=== PATIENT | male | born 1990 | race Caucasian/White ===

== ENCOUNTER 2018-08-08 10:15 | Observation (INO) ==
[2018-08-08] MEDS ORDERED: Ketorolac Inj 30 MG/ML (IVP) Vial IV.PUSH ONE (10:48)
[2018-08-08] MEDS ORDERED: Sod Chloride 0.9% Inj 1,000 ML IV.SIG ONE ×3 (10:48→13:21)
--- NOTE | 2018-08-08 11:20 | ED ---
HPI General Chief complaint: Nausea/Vomiting/Diarrhea Stated complaint: Cold / flu symptoms Time Seen by Provider: 08/08/18 10:34 Source: patient and RN notes reviewed Mode of arrival: ambulatory History of Present Illness HPI narrative: 28yM presenting with fever, chills, sore throat, and nausea. The patient states that he was seen at [facility] approximately 1 week ago for similar symptoms, told he likely had mono based on his CBC, and was instructed on supportive care. He has been taking Tylenol and Motrin with temporary relief of symptoms but says that he now has nausea and has had several episodes of vomiting as well. He says that yesterday when he woke up he had swelling and pain to the right side of his neck. Denies rash, cough, abdominal pain, diarrhea, or dysuria. No recent travel or known sick contacts. History of pharyngeal flap in the past due to "an extra piece of skin on my throat". Related Data Home Medications Medication Instructions Recorded Confirmed No Known Home Medications 08/08/18 08/08/18 Allergies Allergy/AdvReac Type Severity Reaction Status Date / Time Penicillins Allergy Rash Verified 08/08/18 11:13 Review of Systems ROS: all other systems reviewed are negative Constitutional Reports chills and Reports fever(s) Eyes Denies blurry vision ENT Reports sore throat Cardiovascular Denies chest pain Respiratory Denies cough Gastrointestinal Denies abdominal pain and Reports nausea Genitourinary Denies dysuria Musculoskeletal Denies back pain Neurologic Denies confusion Psychiatric Denies confusion PMFSH History History Provided By: Patient Medical History Medical History Patient denies medical problems (Acute) Social History Social History Substance History: No History of Abuse Second Hand Smoke Exposure: No Smoking Status: Never smoker How Often Do You Have a Drink Containing Alcohol: Never Recent Travel in [facility] within the Last 8 Weeks: No Recent Out of Country Travel within the Last 8 Weeks: No Immunization History Tetanus Immunization: Unsure Exam Const General: healthy appearing and no acute distress HENMT Face and sinus: normal facial exam Other: Tongue and uvula midline, no obvious cervical adenopathy, no trismus or drooling, normal phonation Eyes General: appearance normal, both eyes and all related structures Pupils: PERRL Chest Chest: normal inspection of the chest Resp Effort & Inspection: normal respiratory effort Auscultation: no rhonchi and no wheezes Cardio Rate: tachycardic Rhythm: regular rhythm GI Inspection: non-distended Palpation: soft and nontender Skin General: no rashes or lesions noted Neuro General: alert, awake, oriented x3 and no focal motor deficits Psych Affect: normal affect Course Initial Documented Vital Signs Temperature 100 F H 08/08/18 10:19 Pulse Rate 124 H 08/08/18 10:19 Respiratory Rate 22 08/08/18 10:19 Blood Pressure 179/84 H 08/08/18 10:19 Pulse Oximetry 94 L 08/08/18 10:19 Last Documented Vital Signs Temperature 100 F H 08/08/18 10:19 Pulse Rate 91 H 08/08/18 13:43 Respiratory Rate 18 08/08/18 13:43 Blood Pressure 132/74 08/08/18 13:43 Pulse Oximetry 97 08/08/18 13:43 Medical Decision Making [facility] Narrative Medical decision making narrative: Assessment: 28yM presenting with fever, chills, sore throat, nausea Plan: IV fluids, antiemetics Labs CT soft tissue neck Addendum: Patient's workup shows leukocytosis with 9% bands and elevated LFTs. His CXR, CT neck, and RUQ US are all negative for acute pathology. His flu swab is negative. His HR is improved to 90s after 3L NS bolus, temp still around 100F. Given his persistent fever and bandemia, I recommended keeping the patient for observation/ IV hydration/ antibiotics; patient agrees with plan. Case discussed with Dr. Bess of [facility]. Medical Screen Exam Complete: Yes Emergency Medical Condition: Yes Differential Diagnosis Differential Diagnosis: Differential diagnosis includes, but is not limited to: mononucleosis, viral syndrome, dehydration, retropharyngeal/ peritonsillar abscess, cervical mass, sepsis/SIRS Lab Data Lab results reviewed: Yes I reviewed the patient's lab results. Result diagrams: 08/08/18 11:08 08/08/18 11:08 Lab Results 08/08/18 08/08/18 08/08/18 Range/Units 11:08 11:08 11:08 WBC 13.5 H (4.0-11.0) th/mm3 RBC 5.03 (4.50-5.90) mil/mm3 Hgb 14.7 (13.0-17.0) gm/dL Hct 43.9 (39.0-51.0) % MCV 87.3 (80.0-100.0) fL MCH 29.2 (27.0-34.0) pg MCHC 33.5 (32.0-36.0) % RDW 13.7 (11.6-17.2) % Plt Count 170 (150-450) th/mm3 MPV 8.2 (7.0-11.0) fL Prelim Diff (Auto) Slide review pending Neut % (Auto) 39.2 (16.0-70.0) % Lymph % (Auto) 52.1 H (9.0-44.0) % [place] % (Auto) 7.1 (0.0-8.0) % Eos % (Auto) 1.1 (0.0-4.0) % Baso % (Auto) 0.5 (0.0-2.0) % Neut # (Auto) 5.3 (1.8-7.7) th/mm3 Lymph # (Auto) 7.0 H (1.0-4.8) th/mm3 [place] # (Auto) 1.0 H (0.0-0.9) th/mm3 Eos # (Auto) 0.2 (0.0-0.4) th/mm3 Baso # (Auto) 0.1 (0.0-0.2) th/mm3 WBC Differential Manual diff final Seg Neuts % (Manual) 47 (16-70) % Band Neuts % (Manual) 9 H (0-6) % Lymphocytes % (Manual) 26 (9-44) % Atypical Lymphs % (Man) 10 H (0-0) % Monocytes % (Manual) 8 (0-8) % Abs Neuts (Manual) 7.6 (1.8-7.7) th/mm3 Differential Comment . Platelet Estimate Normal (Normal) Platelet Morphology Normal (Normal) RBC Morphology Normal (Normal) Sodium 136 (136-145) meq/L Potassium 3.9 (3.5-5.1) meq/L Chloride 101 (98-107) meq/L Carbon Dioxide 26.1 (21.0-32.0) meq/L Anion Gap 9 (5-15) meq/L BUN 5 L (7-18) mg/dL Creatinine 0.86 (0.60-1.30) mg/dL Estimated GFR Greater than 89 (>89) mL/min Random Glucose 98 (74-106) mg/dL Calcium 8.3 L (8.5-10.1) mg/dL Magnesium 2.0 (1.5-2.5) mg/dL Total Bilirubin 0.9 (0.2-1.0) mg/dL AST 111 H (15-37) U/L ALT 218 H (12-78) U/L Alkaline Phosphatase 137 H (45-117) U/L Total Protein 7.7 (6.4-8.2) g/dL Albumin 3.2 L (3.4-5.0) g/dL Lipase 72 L (73-393) U/L Urine Color (Yellw/Straw) Urine Clarity (Clear) Urine pH (5.0-8.5) Ur Specific [place] (1.002-1.035) Urine Protein (Neg-Trace) mg/dL Urine Glucose (UA) (Negative) mg/dL Urine Ketones (Negative) mg/dL Urine Occult Blood (Negative) Urine Nitrate (Negative) Urine Bilirubin (Negative) Urine Ictotest (Negative) Urine Urobilinogen (Less than 2) mg/dL Ur Leukocyte Esterase (Negative) Urine RBC (0-3) /hpf Urine WBC (0-5) /hpf Urine Mucus (Occasional) /lpf Micro UA Comment Ur Microscopic Review Urine Culture Comments Monoscreen Neg (Neg) 08/08/18 Range/Units 12:08 WBC (4.0-11.0) th/mm3 RBC (4.50-5.90) mil/mm3 Hgb (13.0-17.0) gm/dL Hct (39.0-51.0) % MCV (80.0-100.0) fL MCH (27.0-34.0) pg MCHC (32.0-36.0) % RDW (11.6-17.2) % Plt Count (150-450) th/mm3 MPV (7.0-11.0) fL Prelim Diff (Auto) Neut % (Auto) (16.0-70.0) % Lymph % (Auto) (9.0-44.0) % [place] % (Auto) (0.0-8.0) % Eos % (Auto) (0.0-4.0) % Baso % (Auto) (0.0-2.0) % Neut # (Auto) (1.8-7.7) th/mm3 Lymph # (Auto) (1.0-4.8) th/mm3 [place] # (Auto) (0.0-0.9) th/mm3 Eos # (Auto) (0.0-0.4) th/mm3 Baso # (Auto) (0.0-0.2) th/mm3 WBC Differential Seg Neuts % (Manual) (16-70) % Band Neuts % (Manual) (0-6) % Lymphocytes % (Manual) (9-44) % Atypical Lymphs % (Man) (0-0) % Monocytes % (Manual) (0-8) % Abs Neuts (Manual) (1.8-7.7) th/mm3 Differential Comment Platelet Estimate (Normal) Platelet Morphology (Normal) RBC Morphology (Normal) Sodium (136-145) meq/L Potassium (3.5-5.1) meq/L Chloride (98-107) meq/L Carbon Dioxide (21.0-32.0) meq/L Anion Gap (5-15) meq/L BUN (7-18) mg/dL Creatinine (0.60-1.30) mg/dL Estimated GFR (>89) mL/min Random Glucose (74-106) mg/dL Calcium (8.5-10.1) mg/dL Magnesium (1.5-2.5) mg/dL Total Bilirubin (0.2-1.0) mg/dL AST (15-37) U/L ALT (12-78) U/L Alkaline Phosphatase (45-117) U/L Total Protein (6.4-8.2) g/dL Albumin (3.4-5.0) g/dL Lipase (73-393) U/L Urine Color Zeynep (Yellw/Straw) Urine Clarity Hazy H (Clear) Urine pH 5.0 (5.0-8.5) Ur Specific [place] 1.038 H (1.002-1.035) Urine Protein 100 H (Neg-Trace) mg/dL Urine Glucose (UA) Negative (Negative) mg/dL Urine Ketones Negative (Negative) mg/dL Urine Occult Blood Negative (Negative) Urine Nitrate Negative (Negative) Urine Bilirubin Negative (Negative) Urine Ictotest Negative (Negative) Urine Urobilinogen 4 or greater (Less than 2) mg/dL Ur Leukocyte Esterase Negative (Negative) Urine RBC 1 (0-3) /hpf Urine WBC 1 (0-5) /hpf Urine Mucus Many H (Occasional) /lpf Micro UA Comment Culture not ind Ur Microscopic Review Not Reportable Urine Culture Comments Culture not ind Monoscreen (Neg) Imaging Data Radiologist's impression: Soft Tissue Neck CT 08/08/18 10:48 CONCLUSION: 1. Prominent bilateral internal jugular lymph nodes 2. Mild mucosal thickening left maxillary sinus. 3. No evidence of suspicious mass or acute inflammatory disease Gallbladder Ultrasound 08/08/18 12:41 CONCLUSION: 1. Hepatomegaly with abnormal echotexture characteristic of steatosis and/or diffuse hepatocellular disease. 2. No evidence of cholelithiasis or acute process. Discharge Plan Discharge Disposition Patient Disposition: 28 Still Patient Discharge Condition Condition: Stable Discharge Details Diagnosis: Bandemia, Febrile illness Physicians Team ED Provider: Leigha Corado Primary Care Provider: Primary Care Physici,No Rxs /Orders / Referrals /Forms Prescriptions: No Action No Known Home Medications RF: 0 Status ED Status: Pending Admission
[2018-08-08 11:27] LABS: Baso # (Auto) 0.1 th/mm3 (0.0-0.2); Baso % (Auto) 0.5 % (0.0-2.0); Eos # (Auto) 0.2 th/mm3 (0.0-0.4); Eos % (Auto) 1.1 % (0.0-4.0); Hematocrit 43.9 % (39.0-51.0); Hemoglobin 14.7 gm/dL (13.0-17.0); Lymph % (Auto) 52.1 % (9.0-44.0); Mean Corpuscular HGB Conc 33.5 % (32.0-36.0); Mean Corpuscular Hemoglobin 29.2 pg (27.0-34.0); Mean Corpuscular Volume 87.3 fL (80.0-100.0); Mean Platelet Volume 8.2 fL (7.0-11.0); Mono % (Auto) 7.1 % (0.0-8.0); Neut # (Auto) 5.3 th/mm3 (1.8-7.7); Neut % (Auto) 39.2 % (16.0-70.0); Platelet Count 170 th/mm3 (150-450); Red Blood Count 5.03 mil/mm3 (4.50-5.90); Red Cell Distribution Width 13.7 % (11.6-17.2); White Blood Count 13.5 th/mm3 (4.0-11.0)
[2018-08-08 11:36] LABS: Mono Screen Neg (Neg)
[2018-08-08 11:58] LABS: Alkaline Phosphatase 137 U/L (45-117); Total Protein 7.7 g/dL (6.4-8.2)
[2018-08-08 12:12] LABS: Alanine Aminotransferase 218 U/L (12-78); Albumin 3.2 g/dL (3.4-5.0); Anion Gap 9 meq/L (5-15); Aspartate Aminotransferase 111 U/L (15-37); Blood Urea Nitrogen 5 mg/dL (7-18); Calcium 8.3 mg/dL (8.5-10.1); Carbon Dioxide 26.1 meq/L (21.0-32.0); Chloride 101 meq/L (98-107); Glomerular Filtration Rate Greater Than 89 mL/min (>89); Glucose,Random 98 mg/dL (74-106); Lipase 72 U/L (73-393); Potassium 3.9 meq/L (3.5-5.1); Sodium 136 meq/L (136-145)
[2018-08-08 12:21] LABS: Atypical Lymphs 10 % (0-0); Lymphocytes 26 % (9-44); Monocytes 8 % (0-8); Platelet Estimate Normal (Normal); Platelet Morphology Normal (Normal); RBC Morphology Normal (Normal)
[2018-08-08 12:51] LABS: Clarity,Urine Hazy (Clear); Color,Urine Amber (Yellw/Straw); Glucose,Urine (UA) Negative (Negative); Leukocyte Esterase,Urine Negative (Negative); Mucus,Urine Many /lpf (Occasional); Nitrite,Urine Negative (Negative); Specific Gravity,Urine 1.038 (1.002-1.035); Urobilinogen,Urine 4 or Greater mg/dL (Less than 2)
[2018-08-08 12:57] LABS: Bilirubin,Urine Negative (Negative); Ictotest,Urine Negative (Negative)
--- NOTE | 2018-08-08 13:04 | CT ---
EXAM DATE: 08/08/2018 12:44 PM EST AGE/SEX: 28 years / Male INDICATIONS: Right side neck pain radiating up to right ear, fever, vomiting, cough CLINICAL DATA: This is the patient's initial encounter. Patient reports that signs and symptoms have been present for 2 weeks and indicates a pain score of 3/10. MEDICAL/SURGICAL HISTORY: None. None. RADIATION DOSE: 19.24 CTDI (mGy) COMPARISON: No prior exams available for comparison. TECHNIQUE: Helical acquisition was performed using a multirow detector CT scanner during the adminis tration of 71ML ml Omnipaque 350 (iohexol) nonionic water-soluble contrast as a single exam dose. U sing automated exposure control and adjustment of the mA and/or kV according to patient size, radiati on dose was kept as low as reasonably achievable to obtain optimal diagnostic quality images. DICOM format image data is available electronically for review and comparison. FINDINGS: Nasopharynx: The nasopharyngeal airway has a normal configuration. No mucosal thickening or mass is seen. Oropharynx: The intrinsic muscles of the tongue are symmetric. The tonsillar pillars are intact. T he prevertebral soft tissues are not thickened. Larynx: The supraglottic, glottic, and infraglottic structures are intact. Parapharyngeal: The parapharyngeal space is intact. Salivary Glands: The parotid and submandibular glands are intact. Lymph Nodes: Mildly enlarged bilateral level 2 and level 3 internal jugular lymph nodes are noted. L ymph nodes range in size up to 2 cm in greatest diameter. There are no necrotic changes. Thyroid: Homogeneous enhancement without evidence of nodule. Bones: Unremarkable. Mild mucosal thickening is seen along the floor of the left maxillary sinus. CONCLUSION: 1. Prominent bilateral internal jugular lymph nodes 2. Mild mucosal thickening left maxillary sinus. 3. No evidence of suspicious mass or acute inflammatory disease Electronically signed by: Carroll Melgar MD 08/08/2018 1:03 PM EST
--- NOTE | 2018-08-08 13:15 | US ---
EXAM DATE: 08/08/2018 1:11 PM EST AGE/SEX: 28 years / Male INDICATIONS: Nausea. Vomiting. CLINICAL DATA: This is the patient's initial encounter. Patient reports that signs and symptoms have been present for 2 weeks and indicates a pain score of 3/10. MEDICAL/SURGICAL HISTORY: . Nausea. Vomiting. None. COMPARISON: No prior exams available for comparison. MEASUREMENTS: Liver:__ 21.3 cm. Common Bile Duct:__ 5mm. FINDINGS: Liver: Increased echotexture without focal lesion or ductal dilation. Portal Vein: Hepatopedal flow seen in portal vein. Common Duct: No intraluminal mass or stone visualized. Gallbladder: Demonstrates no wall thickening or pericholecystic fluid. No stones visualized. Pancreas: Not well visualized. Right Kidney: Normal echotexture and cortical thickness. No mass or hydronephrosis. Other: None. CONCLUSION: 1. Hepatomegaly with abnormal echotexture characteristic of steatosis and/or diffuse hepatocellular disease. 2. No evidence of cholelithiasis or acute process. Electronically signed by: Carroll Melgar MD 08/08/2018 1:13 PM EST
[2018-08-08] MEDS ORDERED: Vancomycin Inj 1,000 MG in Sodium Chlor 0.9% Inj 250 ML IV.SIG STA (13:43)
[2018-08-08] MEDS ORDERED: Aztreonam Inj 2 GM in Sodium Chloride 0.9% Inj 100 ML IV.SIG STA (13:43)
--- NOTE | 2018-08-08 14:24 | P.HPIM ---
History of Present Illness Primary Care Physician: No Primary Care Physician Chief Complaint: fever History of Present Illness: patient is a 28 y/o male with no significant past medical history who presented to ER with fever. he says that he's had on and off fever along with sore throat , nausea, vomiting and diarrhea for the past two weeks. he was seen at [facility] about a week ago and was told that he probably had mononucleosis although he says that ' he wasn't tested for it'. he was given some IV fluid and discharged home. he says that his fever didn't go away despite taking tylenol and motrin and since then he's been getting weaker to the extent that he couldn't walk today.he denies any abdominal pain but had on and off chills and night sweats. he was tachycardic at the time of presentation to ER which improved after IV hydration. Review of Systems All other systems reviewed negative except as stated in HPI PMFSH - History History Provided By: Patient - Medical History Medical History: Medical History (Last Reviewed 08/08/18 @ 14:19 by Magdalena Bess MD) Patient denies medical problems - Surgical History Surgical History: Surgical History (Last Updated 08/08/18 @ 14:20 by Magdalena Bess MD) H/O knee surgery - Family History Family History: Family History (Last Updated 08/08/18 @ 14:20 by Magdalena Bess MD) Father Family history of hypertension - Tobacco History Second Hand Smoke Exposure: No Tobacco Use In Past 30 Days: No Smoking Status: Never smoker - Alcohol History How Often Do You Have a Drink Containing Alcohol: Never - Substance Use History Substance History: No History of Abuse - Travel History Recent Travel in the [place] Within the Last 8 Weeks: No Recent Travel Out of the Country Within the Last 8 Weeks: No - Immunization History Tetanus Immunization: Unsure Medications and Allergies Active Medications: Active Medications Metronidazole/Sodium Chloride (Flagyl 500 Mg Inj) 100 mls @ 100 mls/hr IV.SIG STAT STA Stop: 08/08/18 14:42 Last Admin: 08/08/18 14:01 Dose: 100 mls/hr Vancomycin HCl 1,000 mg/ (Sodium Chloride) 250 mls @ 250 mls/hr IV.SIG STAT STA Stop: 08/08/18 14:42 Sodium Chloride (Ns Flush) 2 ml IV.FLUSH PRN PRN PRN Reason: FLUSH AFTER USING IV ACCESS Allergies Allergy/AdvReac Type Severity Reaction Status Date / Time Penicillins Allergy Rash Verified 08/08/18 11:13 Home Medications Medication Instructions Recorded Confirmed Type No Known Home Medications 08/08/18 08/08/18 History Exam Vital signs: Vital Signs 08/08/18 10:19 08/08/18 10:45 08/08/18 12:02 Temperature 100 F H Pulse Rate 124 H 112 H Respiratory Rate 22 16 18 Blood Pressure 179/84 H Pulse Oximetry 94 L 97 08/08/18 13:43 Temperature Pulse Rate 91 H Respiratory Rate 18 Blood Pressure 132/74 Pulse Oximetry 97 Intake & Output 08/07/18 08/08/18 08/08/18 19:59 06:59 18:59 Intake Total 3000 / 3000 Balance 3000 / 3000 Weight 127.006 kg Intake: IV 3000 / 3000 NS Inj 1,000 ML @ Wide Open IV. 3000 / 3000 SIG BOLUS ONE Rx#:[id number] - Constitutional no acute distress - Routine HEENT Exam Eye: Present: PERRL - Routine Neck Exam Present: supple - Routine Respiratory Exam Present: CTA bilaterally - Routine Cardiovascular Exam Present: RRR - Routine Abdominal Exam Present: soft - Routine Extremities Exam Comments: no pedal edema. - Routine Neurological Exam Present: alert, oriented X3 Results - Labs CBC & Chem 7: 08/08/18 11:08 08/08/18 11:08 Labs: Short CBC 08/08/18 Range/Units 11:08 WBC 13.5 H (4.0-11.0) th/mm3 Hgb 14.7 (13.0-17.0) gm/dL Hct 43.9 (39.0-51.0) % Plt Count 170 (150-450) th/mm3 BMP 08/08/18 11:08 Sodium 136 Potassium 3.9 Chloride 101 Carbon Dioxide 26.1 BUN 5 L Creatinine 0.86 Calcium 8.3 L Liver Function 08/08/18 Range/Units 11:08 Total Bilirubin 0.9 (0.2-1.0) mg/dL AST 111 H (15-37) U/L ALT 218 H (12-78) U/L Alkaline Phosphatase 137 H (45-117) U/L Albumin 3.2 L (3.4-5.0) g/dL Urine 08/08/18 Range/Units 12:08 Urine Color Zeynep (Yellw/Straw) Urine Clarity Hazy H (Clear) Urine pH 5.0 (5.0-8.5) Ur Specific [place] 1.038 H (1.002-1.035) Urine Protein 100 H (Neg-Trace) mg/dL Urine Glucose (UA) Negative (Negative) mg/dL - Imaging Impressions Soft Tissue Neck CT 08/08/18 10:48 CONCLUSION: 1. Prominent bilateral internal jugular lymph nodes 2. Mild mucosal thickening left maxillary sinus. 3. No evidence of suspicious mass or acute inflammatory disease Gallbladder Ultrasound 08/08/18 12:41 CONCLUSION: 1. Hepatomegaly with abnormal echotexture characteristic of steatosis and/or diffuse hepatocellular disease. 2. No evidence of cholelithiasis or acute process. Caprini VTE Risk Assessment Caprini VTE Risk Assessment: No/Low Risk (score <= 1) Caprini Risk Assessment Model: Point Value = 1 Point Value = 2 Point Value = 3 Point Value = 5 Age 41-60 Minor surgery BMI > 25 kg/m2 Swollen legs Varicose veins or History of unexplained or recurrent spontaneous Oral contraceptives or hormone replacement Sepsis (< 1 month) Serious lung disease, including pneumonia (< 1 month) Abnormal pulmonary function Acute myocardial infarction Congestive heart failure (< 1 month) History of inflammatory bowel disease Medical patient at bed rest Age 61-74 Arthroscopic surgery Major open surgery (> 45 min) Laparoscopic surgery (> 45 min) Malignancy Confined to bed (> 72 hours) Immobilizing plaster cast Central venous access Age >= 75 History of VTE Family history of VTE Factor V Leiden Prothrombin [id number] Lupus anticoagulant Anticardiolipin antibodies Elevated serum homocysteine Heparin-induced thrombocytopenia Other congenital or acquired thrombophilia Stroke (< 1 month) Elective arthroplasty Hip, pelvis, or leg fracture Acute spinal cord injury (< 1 month) Prophylaxis Regimen: Total Risk Factor Score Risk Level Prophylaxis Regimen 0-1 Low Early ambulation 2 Moderate Order ONE of the following: *Sequential Compression Device (SCD) *Heparin 5000 units SQ BID 3-4 Higher Order ONE of the following medications: *Heparin 5000 units SQ TID *Enoxaparin/Lovenox 40 mg SQ daily (WT < 150 kg, CrCl > 30 mL/min) *Enoxaparin/Lovenox 30 mg SQ daily (WT < 150 kg, CrCl > 10-29 mL/min) *Enoxaparin/Lovenox 30 mg SQ BID (WT < 150 kg, CrCl > 30 mL/min) AND/OR *Sequential Compression Device (SCD) 5 or more Highest Order ONE of the following medications: *Heparin 5000 units SQ TID (Preferred with Epidurals) *Enoxaparin/Lovenox 40 mg SQ daily (WT < 150 kg, CrCl > 30 mL/min) *Enoxaparin/Lovenox 30 mg SQ daily (WT < 150 kg, CrCl > 10-29 mL/min) *Enoxaparin/Lovenox 30 mg SQ BID (WT < 150 kg, CrCl > 30 mL/min) AND *Sequential Compression Device (SCD) Assessment and Plan - Plan A/P - SIRS; fever/ leukocytosis with bandemia/ tachycardia with elevated LFT's patient was seen at [facility] for fever about a week ago and discharged home from ER. UA and CXR negative/ mono test negative. GB sonogram with hepatomegaly and possible hepatocellular disease and no acute abnormality. CT neck soft tissue with prominent internal jugular lymph nodes and no acute inflammatory process. received IV antibiotics in ER- will hold off on IV antibiotics for now. will follow the cultures. HIV testing/ check the hepatitis panel and consult ID. continue with supportive care with IV fluid and antipyretics as needed. will obtain the medical record from [facility]. Discussed Condition With: ER physician and the patient.
[2018-08-08] MEDS: Sod Chloride 0.9% Inj 1,000 ML IV.CONT SCH (14:36)
--- NOTE | 2018-08-08 14:41 | XR ---
EXAM DATE: 08/08/2018 1:45 PM EST AGE/SEX: 28 years / Male INDICATIONS: Chest pain, fever and shortness of breath. CLINICAL DATA: This is the patient's initial encounter. Patient reports that signs and symptoms have been present for 2 weeks and indicates a pain score of 5/10. MEDICAL/SURGICAL HISTORY: Asthma. None. COMPARISON: No prior exams available for comparison. FINDINGS: A single AP view of the chest demonstrates the lungs to be symmetrically aerated without evidence of mass, infiltrate or effusion. The cardiomediastinal contours are unremarkable. Osseous structures a re intact. CONCLUSION: No evidence of acute cardiopulmonary process. Electronically signed by: Carroll Melgar MD 08/08/2018 2:40 PM EST
[2018-08-08] MEDS: Ibuprofen 400 MG Tablet PO PRN (20:04)
[2018-08-08 21:11] LABS: Hepatitis A IgM Antibody Nonreactive (Nonreactive); Hepatitits B Surface Antigen Nonreactive (Nonreactive)
[2018-08-09] MEDS: Sod Chloride 0.9% Inj 1,000 ML IV.CONT SCH ×3 (01:29→16:22)
[2018-08-09] MEDS: Ibuprofen 400 MG Tablet PO PRN ×2 (03:31→13:29)
[2018-08-09 08:17] LABS: Hematocrit 36.8 % (39.0-51.0); Hemoglobin 12.3 gm/dL (13.0-17.0); Mean Corpuscular HGB Conc 33.4 % (32.0-36.0); Mean Corpuscular Hemoglobin 29.1 pg (27.0-34.0); Mean Corpuscular Volume 87.2 fL (80.0-100.0); Mean Platelet Volume 7.8 fL (7.0-11.0); Platelet Count 145 th/mm3 (150-450); Red Blood Count 4.22 mil/mm3 (4.50-5.90); Red Cell Distribution Width 14.3 % (11.6-17.2); White Blood Count 10.9 th/mm3 (4.0-11.0)
--- NOTE | 2018-08-09 09:01 | P.PN ---
Subjective Interval history: Follow up for fevers. Patient reports overall feeling better today, however still having fevers overnight. He reports associated sweats throughout the night. He states his sore throat has improved and he is tolerating oral intake. He reports a mild diffuse frontal headache that has also improved. He denies any neck pain or rigidity. Denies any abdominal pain, nausea/vomiting, or diarrhea. He denies any sick contacts. He has no other medical complaints at this time. Physical Exam Vital signs: Vital Signs 08/08/18 10:19 08/08/18 10:45 08/08/18 12:02 Temperature 100 F H Pulse Rate 124 H 112 H Respiratory Rate 22 16 18 Blood Pressure 179/84 H Pulse Oximetry 94 L 97 08/08/18 13:43 08/08/18 14:20 08/08/18 16:00 Temperature 98.6 F Pulse Rate 91 H 92 H 91 H Respiratory Rate 18 18 16 Blood Pressure 132/74 132/74 128/63 Pulse Oximetry 97 98 08/08/18 20:00 08/08/18 23:44 08/09/18 03:34 Temperature 100.6 F H 98.2 F 98.1 F Pulse Rate 100 H 89 100 H Respiratory Rate 20 18 20 Blood Pressure 141/75 H 132/72 141/83 H Pulse Oximetry 98 97 97 08/09/18 07:27 Temperature 97.5 F L Pulse Rate 83 Respiratory Rate 18 Blood Pressure 133/63 Pulse Oximetry 98 Intake & Output 08/08/18 08/09/18 08/09/18 18:59 06:59 18:59 Intake Total 3800 / 3800 2750 / 2750 Balance 3800 / 3800 2750 / 2750 Weight 127.006 kg Intake: IV 3200 / 3200 1950 / 1950 NS Inj 1,000 ML @ 125 mls/hr IV 1700 / 1700 .CONT .Q8H DEON Rx#:[id number] Azactam Inj 2 GM In NS Inj 100 100 / 100 ML @ 200 mls/hr IV.SIG STAT STA Rx#:[id number] NS Inj 1,000 ML @ Wide Open IV. 3000 / 3000 SIG BOLUS ONE Rx#:[id number] Vancomycin Inj 1,000 MG In NS 250 / 250 Inj 250 ML @ 250 mls/hr IV.SIG STAT STA Rx#:[id number] Flagyl 500 MG Inj 100 ML @ 100 100 / 100 mls/hr IV.SIG STAT STA Rx#: [id number] Oral 600 / 600 800 / 800 Other: # Voids 3 Narrative: GENERAL: Well-nourished, well-developed pleasant young male patient in NAD. SKIN: Warm and dry. No rash. HEENT: Normocephalic. Atraumatic. Pupils equal and round. Mucous membranes pink and moist. Posterior oropharynx with minimal erythema, no tonsillar edema/ exudate. NECK: Supple. Trachea midline. Nontender. Full active ROM without difficulty/ pain. CARDIOVASCULAR: Regular rate and rhythm. No murmur appreciated. RESPIRATORY: No accessory muscle use. Clear to auscultation. Breath sounds equal bilaterally. GASTROINTESTINAL: Abdomen soft, non-tender, nondistended. Normoactive bowel sounds x4. MUSCULOSKELETAL: No obvious deformities. Extremities without clubbing, cyanosis , or edema. NEUROLOGICAL: Awake and alert. No obvious cranial nerve deficits. Motor grossly within normal limits. Moving all extremities spontaneously. Normal speech. PSYCHIATRIC: Appropriate mood and affect; insight and judgment normal. Results - Labs CBC & Chem 7: 08/09/18 07:57 08/08/18 11:08 Laboratory Results - last 24 hr 08/08/18 08/08/18 08/08/18 11:08 11:08 11:08 WBC 13.5 H RBC 5.03 Hgb 14.7 Hct 43.9 MCV 87.3 MCH 29.2 MCHC 33.5 RDW 13.7 Plt Count 170 MPV 8.2 Prelim Diff (Auto) Slide review pending Neut % (Auto) 39.2 Lymph % (Auto) 52.1 H [place] % (Auto) 7.1 Eos % (Auto) 1.1 Baso % (Auto) 0.5 Neut # (Auto) 5.3 Lymph # (Auto) 7.0 H [place] # (Auto) 1.0 H Eos # (Auto) 0.2 Baso # (Auto) 0.1 WBC Differential Manual diff final Seg Neuts % (Manual) 47 Band Neuts % (Manual) 9 H Lymphocytes % (Manual) 26 Atypical Lymphs % (Man) 10 H Monocytes % (Manual) 8 Abs Neuts (Manual) 7.6 Differential Comment . Platelet Estimate Normal Platelet Morphology Normal RBC Morphology Normal ESR Sodium 136 Potassium 3.9 Chloride 101 Carbon Dioxide 26.1 Anion Gap 9 BUN 5 L Creatinine 0.86 Estimated GFR Greater than 89 Random Glucose 98 Lactic Acid Calcium 8.3 L Magnesium 2.0 Total Bilirubin 0.9 AST 111 H ALT 218 H Alkaline Phosphatase 137 H C-Reactive Protein Total Protein 7.7 Albumin 3.2 L Lipase 72 L Urine Color Urine Clarity Urine pH Ur Specific [place] Urine Protein Urine Glucose (UA) Urine Ketones Urine Occult Blood Urine Nitrate Urine Bilirubin Urine Ictotest Urine Urobilinogen Ur Leukocyte Esterase Urine RBC Urine WBC Urine Mucus Micro UA Comment Ur Microscopic Review Urine Culture Comments Hepatitis A IgM Ab Hep Bs Antigen Hep B Core IgM Ab Hep C IgG Ab Monoscreen Neg HIV 1&2 Ab/P24 Ag 4thGn 08/08/18 08/08/18 08/08/18 11:08 11:08 12:08 WBC RBC Hgb Hct MCV MCH MCHC RDW Plt Count MPV Prelim Diff (Auto) Neut % (Auto) Lymph % (Auto) [place] % (Auto) Eos % (Auto) Baso % (Auto) Neut # (Auto) Lymph # (Auto) [place] # (Auto) Eos # (Auto) Baso # (Auto) WBC Differential Seg Neuts % (Manual) Band Neuts % (Manual) Lymphocytes % (Manual) Atypical Lymphs % (Man) Monocytes % (Manual) Abs Neuts (Manual) Differential Comment Platelet Estimate Platelet Morphology RBC Morphology ESR 10 Sodium Potassium Chloride Carbon Dioxide Anion Gap BUN Creatinine Estimated GFR Random Glucose Lactic Acid Calcium Magnesium Total Bilirubin AST ALT Alkaline Phosphatase C-Reactive Protein 5.55 H Total Protein Albumin Lipase Urine Color Zeynep Urine Clarity Hazy H Urine pH 5.0 Ur Specific [place] 1.038 H Urine Protein 100 H Urine Glucose (UA) Negative Urine Ketones Negative Urine Occult Blood Negative Urine Nitrate Negative Urine Bilirubin Negative Urine Ictotest Negative Urine Urobilinogen 4 or greater Ur Leukocyte Esterase Negative Urine RBC 1 Urine WBC 1 Urine Mucus Many H Micro UA Comment Culture not ind Ur Microscopic Review Not Reportable Urine Culture Comments Culture not ind Hepatitis A IgM Ab Hep Bs Antigen Hep B Core IgM Ab Hep C IgG Ab Monoscreen HIV 1&2 Ab/P24 Ag 4thGn 08/08/18 08/08/18 08/08/18 12:37 18:03 18:03 WBC RBC Hgb Hct MCV MCH MCHC RDW Plt Count MPV Prelim Diff (Auto) Neut % (Auto) Lymph % (Auto) [place] % (Auto) Eos % (Auto) Baso % (Auto) Neut # (Auto) Lymph # (Auto) [place] # (Auto) Eos # (Auto) Baso # (Auto) WBC Differential Seg Neuts % (Manual) Band Neuts % (Manual) Lymphocytes % (Manual) Atypical Lymphs % (Man) Monocytes % (Manual) Abs Neuts (Manual) Differential Comment Platelet Estimate Platelet Morphology RBC Morphology ESR Sodium Potassium Chloride Carbon Dioxide Anion Gap BUN Creatinine Estimated GFR Random Glucose Lactic Acid 1.3 Calcium Magnesium Total Bilirubin AST ALT Alkaline Phosphatase C-Reactive Protein Total Protein Albumin Lipase Urine Color Urine Clarity Urine pH Ur Specific [place] Urine Protein Urine Glucose (UA) Urine Ketones Urine Occult Blood Urine Nitrate Urine Bilirubin Urine Ictotest Urine Urobilinogen Ur Leukocyte Esterase Urine RBC Urine WBC Urine Mucus Micro UA Comment Ur Microscopic Review Urine Culture Comments Hepatitis A IgM Ab Nonreactive Hep Bs Antigen Nonreactive Hep B Core IgM Ab Nonreactive Hep C IgG Ab Nonreactive Monoscreen HIV 1&2 Ab/P24 Ag 4thGn Nonreactive 08/09/18 07:57 WBC 10.9 RBC 4.22 L Hgb 12.3 L D Hct 36.8 L MCV 87.2 MCH 29.1 MCHC 33.4 RDW 14.3 Plt Count 145 L MPV 7.8 Prelim Diff (Auto) Manual diff required Neut % (Auto) Lymph % (Auto) [place] % (Auto) Eos % (Auto) Baso % (Auto) Neut # (Auto) Lymph # (Auto) [place] # (Auto) Eos # (Auto) Baso # (Auto) WBC Differential Seg Neuts % (Manual) Band Neuts % (Manual) Lymphocytes % (Manual) Atypical Lymphs % (Man) Monocytes % (Manual) Abs Neuts (Manual) Differential Comment . Platelet Estimate Platelet Morphology RBC Morphology ESR Sodium Potassium Chloride Carbon Dioxide Anion Gap BUN Creatinine Estimated GFR Random Glucose Lactic Acid Calcium Magnesium Total Bilirubin AST ALT Alkaline Phosphatase C-Reactive Protein Total Protein Albumin Lipase Urine Color Urine Clarity Urine pH Ur Specific [place] Urine Protein Urine Glucose (UA) Urine Ketones Urine Occult Blood Urine Nitrate Urine Bilirubin Urine Ictotest Urine Urobilinogen Ur Leukocyte Esterase Urine RBC Urine WBC Urine Mucus Micro UA Comment Ur Microscopic Review Urine Culture Comments Hepatitis A IgM Ab Hep Bs Antigen Hep B Core IgM Ab Hep C IgG Ab Monoscreen HIV 1&2 Ab/P24 Ag 4thGn Microbiology 08/08/18 12:53 Nasal Wash Influenza Types A,B Antigen - Final Negative for FLU A and B antigen Infection due to influenza A or B cannot be ruled out since the antigen present in the sample may be below the detection limit of the test. - Imaging Impressions Soft Tissue Neck CT 08/08/18 10:48 CONCLUSION: 1. Prominent bilateral internal jugular lymph nodes 2. Mild mucosal thickening left maxillary sinus. 3. No evidence of suspicious mass or acute inflammatory disease Gallbladder Ultrasound 08/08/18 12:41 CONCLUSION: 1. Hepatomegaly with abnormal echotexture characteristic of steatosis and/or diffuse hepatocellular disease. 2. No evidence of cholelithiasis or acute process. Chest X-Ray 08/08/18 13:21 CONCLUSION: No evidence of acute cardiopulmonary process. Assessment and Plan - Plan 28-year-old male with no significant past medical history presents with persistent fevers, with sore throat, nausea, vomiting, diarrhea intermittently over the past 2 weeks. SIRS with bandemia: Suspect viral illness, however rule out other etiologies. + Leukocytosis WBC 13.5 K, tmax 100.6, tachycardia HR 100s. Lactic acid 1.3. -HIV, Hepatitis, Monoscreen, Influenza all negative -Urinalysis unremarkable -ESR 10, CRP 5.55 -CXR reviewed, no acute findings -Soft tissue neck CT reviewed, shows prominent bilateral internal jugular lymph nodes; mild mucosal thickening left maxillary sinus -S/p IV antibiotics in the ER, will hold off for now until evaluated by ID -Obtain records from patient's previous admission at [facility] -Consult infectious disease, appreciate recommendations Transaminitis: unclear etiology. AST 111, ALT 218, Alk Phos 137. -hepatitis panel negative -Liver U/S shows hepatomegaly with abnormal echotexture characteristic of steatosis and/or diffuse hepatocellular disease; no cholelithiasis -avoid hepatotoxins -check acetaminophen level -continue to monitor DVT Prophylaxis: low risk-ambulation; avoid chemical prophylaxis incase procedure is indicated Discharge Planning: Await ID evaluation and clearance prior to discharge.
[2018-08-09 09:46] LABS: Eosinophils 2 % (0-4); Lymphocytes 26 % (9-44); Metamyelocytes 1 % (0-1); Monocytes 8 % (0-8); Myelocytes 2 % (0-0)
[2018-08-09 09:52] LABS: Platelet Estimate Normal (Normal); Platelet Morphology Normal (Normal); RBC Morphology Normal (Normal)
[2018-08-09 11:34] VITALS: O2SAT 95
[2018-08-09 15:06] VITALS: BP 141/65; PULSE 85; TEMP 98.3
[2018-08-09 16:22] VITALS: RESP 16
== END 2018-08-09 18:45 | disposition home or self-care (01) ==
LOC: NEDA 10:15 → NEPD 10:15 → NEDA 15:06 → NEPHCDU 15:26
PROVIDERS: ADMIT Family Medicine; ATTEND Family Medicine